=== PATIENT | male | born 1970 | race Caucasian/White ===

== ENCOUNTER 2022-02-09 18:54 | Inpatient (IN) | payer OTHER ==
[2022-02-09] MEDS ORDERED: NITROGLYCERIN SL TABS 0.4 MG TAB SUBLINGUAL STA (18:58)
[2022-02-09] MEDS ORDERED: NITROGLYCERIN OINT 1 INCH/GM PACKET TOPICAL STA (18:58)
[2022-02-09] MEDS ORDERED: LORazepam 2 MG/ML INJ IV STA (18:59)
--- NOTE | 2022-02-09 19:03 | ED ---
ENT HPI - General Stated complaint: Chest pain Time Seen by Provider: 02/09/22 18:55 Source: patient, RN notes reviewed, old records reviewed - History of Present Illness Initial comments: This a 51-year-old male who presents emergency Department with a past medical history significant for multiple heart attacks. Patient has one stent placed. Patient states he is a diabetic with hypertension high cholesterol. Patient states she's had a history of crack cocaine abuse she's been clean for 2 weeks. Patient states currently at [place] and when he was there today he had severe chest pain shortness of breath and became very diaphoretic. Patient received an aspirin there and eventually the pain went away EMS was ordered a call they brought him to the emergency department. Patient currently states he is chest pain-free. She states she does feel somewhat anxious. Patient denies any headache patient denies lightheadedness or dizziness. Patient denies any fever chills or cough. Patient denies abdominal pain - Related Data Allergies Allergy/AdvReac Type Severity Reaction Status Date / Time No Known Allergies Allergy Verified 02/09/22 19:06 Review of Systems ROS Statement: Those systems with pertinent positive or pertinent negative responses have been documented in the HPI. ROS Other: All systems not noted in ROS Statement are negative. General Exam - General Exam Comments Initial Comments: GENERAL: Patient is well-developed and well-nourished. Patient is nontoxic and well- hydrated and is in mild distress. ENT: Neck is soft and supple. No significant lymphadenopathy is noted. Oropharynx is clear. Moist mucous membranes. Neck has full range of motion without eliciting any pain. EYES: The sclera were anicteric and conjunctiva were pink and moist. Extraocular movements were intact and pupils were equal round and reactive to light. Eyelids were unremarkable. PULMONARY: Unlabored respirations. Good breath sounds bilaterally. No audible rales rhonchi or wheezing was noted. CARDIOVASCULAR: There is a regular rate and rhythm without any murmurs gallops or rubs. ABDOMEN: Soft and nontender with normal bowel sounds. SKIN: Skin is clear with no lesions or rashes and otherwise unremarkable. NEUROLOGIC: Patient is alert and oriented x3. Cranial nerves II through XII are grossly intact. Motor and sensory are also intact. Normal speech, volume and content. Symmetrical smile. MUSCULOSKELETAL: Normal extremities with adequate strength and full range of motion. LYMPHATICS: No significant lymphadenopathy is noted PSYCHIATRIC: Mildly anxious Course Vital Signs 02/09/22 02/09/22 02/09/22 18:58 19:17 19:26 Temperature 98.9 F Pulse Rate 97 93 Pulse Rate [ 85 [employer] ] Respiratory 18 18 Rate Blood Pressure 212/125 178/123 O2 Sat by Pulse 98 98 Oximetry Medical Decision Making - Medical Decision Making EKG shows sinus rhythm at 80 bpm NJ interval 263 QRS is under 18 QT interval 412 QTC is 448 per patient's EKG shows no ST segment elevation or depression. EKG shows T-wave inversions in 1 and aVL Chest x-ray showed no acute abnormality. I started the patient heparin secondary to the non-STEMI. I spoke with a [place] hospitalist they agreed to admit the patient admitted the patient I consult cardiology. - Lab Data Result diagrams: 02/09/22 19:22 02/09/22 19:25 Lab Results 02/09/22 02/09/22 02/09/22 Range/Units 19:22 19:22 19:25 WBC 5.7 (3.8-10.6) k/uL RBC 4.64 (4.30-5.90) m/uL Hgb 13.8 (13.0-17.5) gm/dL Hct 41.1 (39.0-53.0) % MCV 88.7 (80.0-100.0) fL MCH 29.8 (25.0-35.0) pg MCHC 33.5 (31.0-37.0) g/dL RDW 13.7 (11.5-15.5) % Plt Count 226 (150-450) k/uL MPV 8.0 Neutrophils % 46 % Lymphocytes % 32 % Monocytes % 11 % Eosinophils % 5 % Basophils % 3 % Neutrophils # 2.7 (1.3-7.7) k/uL Lymphocytes # 1.8 (1.0-4.8) k/uL Monocytes # 0.7 (0-1.0) k/uL Eosinophils # 0.3 (0-0.7) k/uL Basophils # 0.2 (0-0.2) k/uL PT 11.3 (9.0-12.0) sec INR 1.0 (<1.2) APTT 22.3 (22.0-30.0) sec Sodium 138 (137-145) mmol/L Potassium 3.9 (3.5-5.1) mmol/L Chloride 104 (98-107) mmol/L Carbon Dioxide 25 (22-30) mmol/L Anion Gap 9 mmol/L BUN 20 (9-20) mg/dL Creatinine 1.20 (0.66-1.25) mg/dL Est GFR (CKD-EPI)AfAm 81 (>60 ml/min/1.73 sqM) Est GFR (CKD-EPI)NonAf 70 (>60 ml/min/1.73 sqM) Glucose 93 (74-99) mg/dL Calcium 9.0 (8.4-10.2) mg/dL Magnesium 2.0 (1.6-2.3) mg/dL Total Bilirubin 0.4 (0.2-1.3) mg/dL AST 47 (17-59) U/L ALT 26 (4-49) U/L Alkaline Phosphatase 86 (38-126) U/L Troponin I (0.000-0.034) ng/mL Total Protein 6.9 (6.3-8.2) g/dL Albumin 4.0 (3.5-5.0) g/dL 02/09/22 Range/Units 19:25 WBC (3.8-10.6) k/uL RBC (4.30-5.90) m/uL Hgb (13.0-17.5) gm/dL Hct (39.0-53.0) % MCV (80.0-100.0) fL MCH (25.0-35.0) pg MCHC (31.0-37.0) g/dL RDW (11.5-15.5) % Plt Count (150-450) k/uL MPV Neutrophils % % Lymphocytes % % Monocytes % % Eosinophils % % Basophils % % Neutrophils # (1.3-7.7) k/uL Lymphocytes # (1.0-4.8) k/uL Monocytes # (0-1.0) k/uL Eosinophils # (0-0.7) k/uL Basophils # (0-0.2) k/uL PT (9.0-12.0) sec INR (<1.2) APTT (22.0-30.0) sec Sodium (137-145) mmol/L Potassium (3.5-5.1) mmol/L Chloride (98-107) mmol/L Carbon Dioxide (22-30) mmol/L Anion Gap mmol/L BUN (9-20) mg/dL Creatinine (0.66-1.25) mg/dL Est GFR (CKD-EPI)AfAm (>60 ml/min/1.73 sqM) Est GFR (CKD-EPI)NonAf (>60 ml/min/1.73 sqM) Glucose (74-99) mg/dL Calcium (8.4-10.2) mg/dL Magnesium (1.6-2.3) mg/dL Total Bilirubin (0.2-1.3) mg/dL AST (17-59) U/L ALT (4-49) U/L Alkaline Phosphatase (38-126) U/L Troponin I 0.147 H* (0.000-0.034) ng/mL Total Protein (6.3-8.2) g/dL Albumin (3.5-5.0) g/dL Critical Care Time Critical Care Time: Yes Total Critical Care Time: 35 Disposition Clinical Impression: Acute non-ST elevation myocardial infarction (NSTEMI), Cocaine abuse Disposition: ADMITTED IP TO THIS HOSP Referrals: Nonstaff,Physician [Primary Care Provider] - 1-2 days Time of Disposition: 20:34
[2022-02-09 19:35] LABS: Basophils # (A) 0.2 k/uL (0-0.2); Basophils % (A) 3 %; Eosinophils # (A) 0.3 k/uL (0-0.7); Eosinophils % (A) 5 %; HCT 41.1 % (39.0-53.0); HGB 13.8 gm/dL (13.0-17.5); Lymphocytes # (A) 1.8 k/uL (1.0-4.8); Lymphocytes % (A) 32 %; MCH 29.8 pg (25.0-35.0); MCHC 33.5 g/dL (31.0-37.0); MCV 88.7 fL (80.0-100.0); Monocytes # (A) 0.7 k/uL (0-1.0); Monocytes % (A) 11 %; Neutrophils # (A) 2.7 k/uL (1.3-7.7); Neutrophils % (A) 46 %; Platelet Count 226 k/uL (150-450); RBC 4.64 m/uL (4.30-5.90); RDW 13.7 % (11.5-15.5); WBC 5.7 k/uL (3.8-10.6)
[2022-02-09 19:38] LABS: Partial Thromboplastin Time 22.3 sec (22.0-30.0); Prothrombin Time 11.3 sec (9.0-12.0)
[2022-02-09 19:39] LABS: Potassium 3.9 mmol/L (3.5-5.1); Total Bilirubin 0.4 mg/dL (0.2-1.3); Total Protein 6.9 g/dL (6.3-8.2)
[2022-02-09] MEDS ORDERED: HEPARIN SODIUM 1,000 UN/ML (10ML VL) IV ONE (20:19)
[2022-02-09] MEDS ORDERED: LORazepam 1 MG TAB PO STA (20:25)
[2022-02-09] MEDS ORDERED: LABETALOL 5 MG/ML VIAL MDV IVP STA (20:25)
[2022-02-09] MEDS ORDERED: HEPARIN SOD,PORK IN 0.45% NACL 25,000 UNIT in 0.45% NACL 1 250ML.BAG IV SCH (20:30)
[2022-02-09] MEDS ORDERED: NITROGLYCERIN SL TABS 0.4 MG TAB SUBLINGUAL PRN (20:36)
--- NOTE | 2022-02-09 20:51 | XR ---
EXAMINATION TYPE: XR chest 2V DATE OF EXAM: 02/09/2022 7:40 PM COMPARISON: None TECHNIQUE: XR chest 2V Frontal and lateral views of the chest. CLINICAL INDICATION:Male, 51 years old with history of Chest Pain; FINDINGS: Lungs/Pleura: There is no evidence of pleural effusion, focal consolidation, or pneumothorax. Pulmonary vascularity: Unremarkable. Heart/mediastinum: Cardiomediastinal silhouette is unremarkable. Musculoskeletal: No acute osseous pathology. IMPRESSION: No acute cardiopulmonary disease/process.
[2022-02-10] MEDS ORDERED: KETOROLAC 15 MG/ML 1 ML VIAL IVP STA (00:06)
[2022-02-10] MEDS: NITROGLYCERIN OINT 1 INCH/GM PACKET TOPICAL SCH ×3 (00:11→15:20)
[2022-02-10 03:06] VITALS: RESP 20
[2022-02-10] MEDS ORDERED: ASPIRIN 325 MG TAB PO SCH (09:00)
[2022-02-10 11:01] LABS: Chol/HDL Ratio 3.53 Ratio; LDL Cholesterol,Calculated 56.6 mg/dL (0.0-131.0)
[2022-02-10] MEDS ORDERED: ACETAMINOPHEN TAB 325 MG TAB PO PRN (11:21)
[2022-02-10] MEDS ORDERED: ASPIRIN 81 MG PO PRN (11:21)
[2022-02-10] MEDS ORDERED: diphenhydrAMINE 25 MG CAP PO PRN (11:21)
--- NOTE | 2022-02-10 11:27 | P.HPIM ---
History of Present Illness 51-year-old male the with known history of coronary artery disease medical stents in the past history of crack again he use which he last used about 2 and half weeks ago was sent in from [facility] as the zion ent became diaphoretic. It was 120 patient had chest pain and short of breath although patient denied any such symptoms to me. Patient had mild elevated troponins of around 1.2-1.4 stable at that level. Patient denied any nausea vomiting abdominal pain dysuria. Patient had a recent cardiac catheterization about 5 months ago at [facility] and as per the patient was cleared we're obtaining medical records from [facility]. EKG showed some T-wave inversions in lead 1 and aVL, unknown whether these are old or new. EKG, the hospital is being obtained as well. Patient denied any other symptoms. REVIEW OF SYSTEMS: CONSTITUTIONAL: No fever, no malaise, no fatigue. HEENT: No recent visual problems or hearing problems. Denied any sore throat. CARDIOVASCULAR: No chest pain, orthopnea, PND, no palpitations, no syncope. PULMONARY: No shortness of breath, no cough, no hemoptysis. GASTROINTESTINAL: No diarrhea, no nausea, no vomiting, no abdominal pain. NEUROLOGICAL: No headaches, no weakness, no numbness. HEMATOLOGICAL: Denies any bleeding or petechiae. GENITOURINARY: Denies any burning micturition, frequency, or urgency. MUSCULOSKELETAL/RHEUMATOLOGICAL: Denies any joint pain, swelling, or any muscle pain. ENDOCRINE: Denies any polyuria or polydipsia. The rest of the 14-point review of systems is negative. PHYSICAL EXAMINATION: GENERAL: The patient is alert and oriented x3, not in any acute distress. Obese HEENT: Pupils are round and equally reacting to light. EOMI. No scleral icterus. No conjunctival pallor. Normocephalic, atraumatic. No pharyngeal erythema. No thyromegaly. CARDIOVASCULAR: S1 and S2 present. No murmurs, rubs, or gallops. PULMONARY: Chest is clear to auscultation, no wheezing or crackles. ABDOMEN: Soft, nontender, nondistended, normoactive bowel sounds. No palpable organomegaly. MUSCULOSKELETAL: No joint swelling or deformity. EXTREMITIES: No cyanosis, clubbing, or pedal edema. NEUROLOGICAL: Gross neurological examination did not reveal any focal deficits. SKIN: No rashes. Assessment and plan -Mildly elevated troponins: Etiology not clear cut etiology will evaluate the patient patient does have history of coronary disease because of which patient was admitted and cardiology was consulted. Patient doesn't have any chest pain just had diarrhea phoresis. Although he does have a some EKG changes, unknown whether there are new changes are old. Medical records from [facility] are being obtained. -Type 2 diabetes mellitus: Patient will resume on his home regimen follow-up with PCP as an outpatient -Hypertension -Coronary artery disease Patient will be evaluated by cardiology, if cleared by cardiology will be discharged today. Past Medical History Past Medical History: Diabetes Mellitus, Hypertension, Myocardial Infarction ([place]) Additional Past Medical History / Comment(s): history of 9 heart attacks- 1 stent placed, neuropathy, gout, History of Any Multi-Drug Resistant Organisms: None Reported Past Surgical History: Cholecystectomy Additional Past Surgical History / Comment(s): back surgery, Past Psychological History: Unable to Obtain Smoking Status: Never smoker Past Alcohol Use History: None Reported Past Drug Use History: Cocaine Medications and Allergies Home Medications Medication Instructions Recorded Confirmed Type Acetaminophen [Tylenol Arthritis] 650 mg PO Q4H PRN 02/09/22 02/09/22 History Aspirin EC [Ecotrin Low Dose] 324 mg PO ONCE PRN 02/09/22 02/09/22 History Chlorpheniramine Maleate 4 mg PO Q4H PRN 02/09/22 02/09/22 History [Chlor-Trimeton] Ibuprofen [Motrin Ib] 800 mg PO TID 02/09/22 02/09/22 History Mag Hydrox/Aluminum Hyd/Simeth 30 ml PO Q4H PRN 02/09/22 02/09/22 History [Mylanta Maximum Strength Liq] Metoprolol Succinate [Toprol XL] 100 mg PO DAILY 02/09/22 02/09/22 History Mirtazapine [Remeron] 15 - 30 mg PO HS 02/09/22 02/09/22 History Multivitamins, Thera [Multivitamin 1 tab PO DAILY 02/09/22 02/09/22 History (formulary)] Thiamine [Vitamin B-1] 100 mg PO DAILY 02/09/22 02/09/22 History gemfibroziL [Lopid] 600 mg PO AC-BID 02/09/22 02/09/22 History glyBURIDE [Diabeta] 5 mg PO AC-BID 02/09/22 02/09/22 History lisinopriL 40 mg PO DAILY 02/09/22 02/09/22 History Allergies Allergy/AdvReac Type Severity Reaction Status Date / Time No Known Allergies Allergy Verified 02/09/22 20:46 Physical Exam Vitals: Vital Signs Temp Pulse Pulse Resp BP Pulse Ox 02/10/22 06:33 90 20 173/111 98 02/10/22 03:05 88 20 98 02/10/22 00:11 87 16 189/114 97 02/09/22 21:58 80 16 161/104 96 02/09/22 21:02 77 18 190/132 96 02/09/22 20:54 88 18 210/125 99 02/09/22 19:26 93 18 178/123 98 02/09/22 19:17 85 02/09/22 18:58 98.9 F 97 18 212/125 98 Intake and Output 02/09/22 02/10/22 02/10/22 22:59 06:59 14:59 Other: Weight 138.346 kg Results CBC & Chem 7: 02/09/22 19:22 02/09/22 19:25 Labs: Abnormal Lab Results - Last 24 Hours (Table) 02/09/22 02/09/22 02/09/22 Range/Units 19:25 21:35 23:53 Troponin I 0.147 H* 0.132 H* 0.126 H* (0.000-0.034) ng/mL HDL Cholesterol (40.00-60.00) mg/dL 02/10/22 Range/Units 08:04 Troponin I (0.000-0.034) ng/mL HDL Cholesterol 32.00 L (40.00-60.00) mg/dL
--- NOTE | 2022-02-10 11:28 | P.DS ---
Providers Date of admission: 02/09/22 20:36 Attending physician: Papo Maldonado Consults: 02/09/22 20:36 Consult Physician Urgent Consulting Provider: [facility] Consult Reason/Comments: Non-STEMI Do you want consulting provider notified?: Yes Primary care physician: Physician Nonsta Hospital Course: Refer to my history of present illness for further details Plan - Discharge Summary New Discharge Prescriptions: Continue Mirtazapine [Remeron] 15 - 30 mg PO HS Mag Hydrox/Aluminum Hyd/Simeth [Mylanta Maximum Strength Liq] 30 ml PO Q4H PRN PRN Reason: Gi Upset Chlorpheniramine Maleate [Chlor-Trimeton] 4 mg PO Q4H PRN PRN Reason: Allergy Symptoms glyBURIDE [Diabeta] 5 mg PO AC-BID gemfibroziL [Lopid] 600 mg PO AC-BID Thiamine [Vitamin B-1] 100 mg PO DAILY Aspirin EC [Ecotrin Low Dose] 324 mg PO ONCE PRN PRN Reason: Pain Acetaminophen [Tylenol Arthritis] 650 mg PO Q4H PRN PRN Reason: pain Multivitamins, Thera [Multivitamin (formulary)] 1 tab PO DAILY lisinopriL 40 mg PO DAILY Metoprolol Succinate [Toprol XL] 100 mg PO DAILY Ibuprofen [Motrin Ib] 800 mg PO TID Discharge Medication List Acetaminophen [Tylenol Arthritis] 650 mg PO Q4H PRN 02/09/22 [History] Aspirin EC [Ecotrin Low Dose] 324 mg PO ONCE PRN 02/09/22 [History] Chlorpheniramine Maleate [Chlor-Trimeton] 4 mg PO Q4H PRN 02/09/22 [History] Ibuprofen [Motrin Ib] 800 mg PO TID 02/09/22 [History] Mag Hydrox/Aluminum Hyd/Simeth [Mylanta Maximum Strength Liq] 30 ml PO Q4H PRN 02/09/22 [History] Metoprolol Succinate [Toprol XL] 100 mg PO DAILY 02/09/22 [History] Mirtazapine [Remeron] 15 - 30 mg PO HS 02/09/22 [History] Multivitamins, Thera [Multivitamin (formulary)] 1 tab PO DAILY 02/09/22 [Histo ry] Thiamine [Vitamin B-1] 100 mg PO DAILY 02/09/22 [History] gemfibroziL [Lopid] 600 mg PO AC-BID 02/09/22 [History] glyBURIDE [Diabeta] 5 mg PO AC-BID 02/09/22 [History] lisinopriL 40 mg PO DAILY 02/09/22 [History] Follow up Appointment(s)/Referral(s): Nonstaff,Physician [Primary Care Provider] - 1-2 days
[2022-02-10] MEDS ORDERED: METOPROLOL SUCCINATE (ER) 100 MG TAB.ER.24H PO SCH (11:45)
[2022-02-10] MEDS ORDERED: lisinopriL 20 MG TAB PO SCH (11:45)
--- NOTE | 2022-02-10 13:37 | CONS ---
CONSULTATION Seamus Vang is a 51-year-old gentleman who has most of his health care in the [facility] in [facility]. He has type 2 diabetes, hypertension, and also crack cocaine addiction for which he was at [place]. He was helping in the kitchen and then developed some shortness of breath and also felt he broke into a sweat. He was not happy about working in the kitchen either. However, he feels well. He has no chest pain or shortness of breath. He is resting comfortably. His 3 levels of troponin are equivocal borderline at 0.12, 0.14 and 0.12. He is resting comfortably at the time of my evaluation. About 4-5 months ago, he had a cardiac cath which revealed nonobstructive CAD. He does have history of previous PCI the details of which are not available. I am unable to get any records from the [facility]. Patient is chest pain free, resting comfortably without symptoms. EKG revealed a sinus mechanism with one and aVL showing some T-wave inversion which are nonspecific findings. He is currently on aspirin 81 mg daily, diabetic medications and also lisinopril 40 mg daily and metoprolol 100 mg daily. He is asymptomatic at the time of my evaluation. PHYSICAL EXAMINATION: On examination, blood pressure is 170/70, pulse rate is 84 per minute., HEENT unremarkable. Fundus was not examined by me. Neck is supple. No JVD. I do not hear a carotid bruit. Heart exam reveals S1, S2 heard normally. No rub, murmur or gallop. Lungs are clear. Abdomen is soft, nontender. Lower extremities reveal diminished pulses. Central nervous system is normal. Troponin levels are equivocal. IMPRESSION: 1. Chest pain, atypical. 2. History of coronary artery disease with unremarkable cardiac cath 4-5 months ago. 3. Type 2 diabetes mellitus. 4. Hypertension. 5. Hyperlipidemia. RECOMMENDATIONS: I will optimize BP control by adding amlodipine 5 mg b.i.d., continue his other medications as before. We can discharge him and have him follow up with his adjuster as an outpatient. The patient is asymptomatic, ambulating without symptoms. I will also optimize BP control and get his records if I can from [facility] in [place]. Actually, after I said this, I reviewed the record. His coronaries were clear. No obstructive disease. Ejection fraction 55%, and his EKG also with T-wave inversion in 1 aVL is not new, was seen in September of 2021. Patient can be discharged and we will give Norvasc for BP control. Resume his medications. Thank you very much for the consult. I discussed my thoughts in detail with the patient. MMODL / IJN: [id number] /
[2022-02-10 15:24] VITALS: PULSE 85
[2022-02-10 15:30] VITALS: BP 149/92; TEMP 98.3
[2022-02-10] MEDS ORDERED: FENOFIBRATE 160 MG TAB PO SCH (17:30)
[2022-02-10] MEDS ORDERED: glipiZIDE 10 MG TAB PO SCH (17:30)
[2022-02-10] MEDS ORDERED: MIRTAZAPINE 15 MG TAB PO SCH (21:00)
[2022-02-11] MEDS ORDERED: MULTIVITAMINS, THERA 1 EACH TAB PO SCH (09:00)
[2022-02-11] MEDS ORDERED: THIAMINE 100 MG TAB PO SCH (09:00)
== END 2022-02-10 15:20 | DRG 313 ==
LOC: EC 18:54 → 3SCARD 20:36
PROVIDERS: ADMIT Hospitalist; ATTEND Hospitalist
DX: R07.89 Other chest pain (principal); F14.20 Cocaine dependence, uncomplicated; I25.10 Atherosclerotic heart disease of native coronary artery without angina pectoris; E11.40 Type 2 diabetes mellitus with diabetic neuropathy, unspecified; I10 Essential (primary) hypertension; E78.00 Pure hypercholesterolemia, unspecified; I25.2 Old myocardial infarction; Z79.82 Long term (current) use of aspirin; Z79.84 Long term (current) use of oral hypoglycemic drugs; Z79.1 Long term (current) use of non-steroidal anti-inflammatories (NSAID); Z79.899 Other long term (current) drug therapy; Z95.5 Presence of coronary angioplasty implant and graft; Z87.39 Personal history of other diseases of the musculoskeletal system and connective tissue
CPT/HCPCS: 36415; 71046; 80053; 80061; 83735; 84484; 85025; 85610; 85730; 93005; 96365; 96366; 96375; 99291

== ENCOUNTER 2022-02-15 20:56 | Observation (INO) | payer OTHER ==
[2022-02-15] MEDS ORDERED: ASPIRIN 81 MG PO STA (21:12)
[2022-02-15] MEDS ORDERED: diphenhydrAMINE 50 MG/ML 1 ML VIAL IVP STA (21:12)
[2022-02-15] MEDS ORDERED: SODIUM CHLORIDE 0.9% 1,000 ML IV STA (21:12)
[2022-02-15] MEDS ORDERED: KETOROLAC 15 MG/ML 1 ML VIAL IVP STA (21:13)
[2022-02-15] MEDS ORDERED: ACETAMINOPHEN TAB 500 MG TAB PO STA (21:13)
[2022-02-15] MEDS ORDERED: PROCHLORPERAZINE INJ 10 MG/2 ML VIAL IVP STA (21:13)
[2022-02-15 21:38] LABS: Basophils # (A) 0.1 k/uL (0-0.2); Basophils % (A) 1 %; Eosinophils # (A) 0.2 k/uL (0-0.7); Eosinophils % (A) 2 %; HCT 40.9 % (39.0-53.0); HGB 13.6 gm/dL (13.0-17.5); Lymphocytes # (A) 1.1 k/uL (1.0-4.8); Lymphocytes % (A) 9 %; MCH 30.6 pg (25.0-35.0); MCHC 33.2 g/dL (31.0-37.0); MCV 92.1 fL (80.0-100.0); Mean Platelet Volume 7.8; Monocytes # (A) 0.7 k/uL (0-1.0); Monocytes % (A) 6 %; Neutrophils % (A) 82 %; Platelet Count 272 k/uL (150-450); RBC 4.44 m/uL (4.30-5.90); WBC 12.3 k/uL (3.8-10.6)
[2022-02-15 21:59] LABS: ALT 22 U/L (4-49); AST 35 U/L (17-59); African American GFR (CKD) >90 (>60 ml/min/1.73 sqM); Albumin 3.6 g/dL (3.5-5.0); Alkaline Phosphatase 73 U/L (38-126); Anion Gap 7 mmol/L; Blood Urea Nitrogen 17 mg/dL (9-20); Calcium 8.6 mg/dL (8.4-10.2); Carbon Dioxide 25 mmol/L (22-30); Chloride 107 mmol/L (98-107); Glucose 79 mg/dL (74-99); Magnesium 1.6 mg/dL (1.6-2.3); Non-African American GFR(CKD) 82 (>60 ml/min/1.73 sqM); Potassium 3.9 mmol/L (3.5-5.1); Sodium 139 mmol/L (137-145); Total Bilirubin 0.3 mg/dL (0.2-1.3); Total Protein 6.3 g/dL (6.3-8.2)
--- NOTE | 2022-02-15 22:04 | XR ---
EXAMINATION TYPE: XR chest 2V DATE OF EXAM: 02/15/2022 COMPARISON: 02/09/2022 HISTORY: Chest pain TECHNIQUE: 2 views FINDINGS: Heart and mediastinum are normal. Lungs are clear. Diaphragm is normal. Bony thorax is inta ct. IMPRESSION: Normal chest. No change.
--- NOTE | 2022-02-15 22:05 | ED ---
General Adult HPI - General Chief complaint: Chest Pain Stated complaint: Chest Pain Time Seen by Provider: 02/15/22 21:05 Source: EMS, RN notes reviewed, old records reviewed Mode of arrival: EMS Limitations: no limitations - History of Present Illness Initial comments: Patient is a 51-year-old male with past with history remarkable for multiple MIs, cardiac stents who presents emergency Department from rehab complaining of upper respiratory symptoms as well as an episode of chest pain earlier today. Prior cocaine use. Denies any recent use. Patient states that for the last 1-2 days he has been having upper respiratory symptoms with cough, nasal drainage. Was not vaccinated for COVID-19 or influenza. Denies chest congestion. Denies nausea, vomiting, abdominal pain, diarrhea. No known sick contacts. States he did have an episode of chest pain approximate 4 hours prior to arrival that resolved with nitro. Describes it as substernal and left-sided is achy and sharp. Currently asymptomatic. No other acute complaints at this time.Patient does endorse a headache following the nitro tablet. - Related Data Home Medications Medication Instructions Recorded Confirmed Acetaminophen [Tylenol Arthritis] 650 mg PO Q4H PRN 02/09/22 02/15/22 Chlorpheniramine Maleate 4 mg PO Q4H PRN 02/09/22 02/15/22 [Chlor-Trimeton] Ibuprofen [Motrin Ib] 600 mg PO Q6H PRN 02/09/22 02/15/22 Mag Hydrox/Aluminum Hyd/Simeth 30 ml PO Q4H PRN 02/09/22 02/15/22 [Mylanta Maximum Strength Liq] Metoprolol Succinate [Toprol XL] 100 mg PO DAILY 02/09/22 02/15/22 Mirtazapine [Remeron] 15 - 30 mg PO HS 02/09/22 02/15/22 Multivitamins, Thera [Multivitamin 1 tab PO DAILY 02/09/22 02/15/22 (formulary)] Thiamine [Vitamin B-1] 100 mg PO DAILY 02/09/22 02/15/22 gemfibroziL [Lopid] 600 mg PO BID 02/09/22 02/15/22 glyBURIDE [Diabeta] 5 mg PO BID 02/09/22 02/15/22 lisinopriL 40 mg PO DAILY 02/09/22 02/15/22 Ibuprofen [Motrin] 800 mg PO TID 02/15/22 02/15/22 cloNIDine HCL [Catapres] 0.1 - 0.3 mg PO Q4H PRN 02/15/22 02/15/22 Allergies Allergy/AdvReac Type Severity Reaction Status Date / Time No Known Allergies Allergy Verified 02/15/22 21:50 Review of Systems ROS Statement: Those systems with pertinent positive or pertinent negative responses have been documented in the HPI. Review of Systems: CONST: Denies fever EYES: Denies blurry vision ENT: Endorses nasal congestion C/V: Denies Chest pain RESP: Denies shortness of breath GI: Denies abdominal pain : Denies dysuria SKIN: Denies rash. MSK: Denies joint pain. NEURO: Endorses mild headache ROS Other: All systems not noted in ROS Statement are negative. Past Medical History Past Medical History: Diabetes Mellitus, Hypertension, Myocardial Infarction ([place]) Additional Past Medical History / Comment(s): history of 9 heart attacks- 1 stent placed, neuropathy, gout, Last Myocardial Infarction Date:: unknown History of Any Multi-Drug Resistant Organisms: None Reported Past Surgical History: Cholecystectomy Additional Past Surgical History / Comment(s): back surgery, Past Psychological History: Unable to Obtain Smoking Status: Never smoker Past Alcohol Use History: None Reported Past Drug Use History: Cocaine General Exam - General Exam Comments Initial Comments: General: Appears in no acute distress. Patient is obese. Patient is mildly febrile. HEAD: Normal with no signs of head trauma. EYES: PERRLA, EOMI, conjunctiva normal, no discharge. ENT: Hearing grossly intact, normal oropharynx. Active rhinorrhea. RESPIRATORY: Clear breath sounds bilaterally. No wheezes, rales, or rhonchi. No respiratory distress. No hypoxia. C/V: Regular rate and rhythm. S1 and S2 auscultated, no edema, peripheral pulses 2+ and intact throughout ABD: Abd is soft, nontender, nondistended EXT: Normal range of motion, no obvious deformity SKIN: No rashes or lesions observed on exposed skin. NEURO: Alert and oriented 4. No focal deficits. Limitations: no limitations Course Vital Signs 02/15/22 20:59 Temperature 100.5 F H Pulse Rate 105 H Respiratory 20 Rate Blood Pressure 163/109 O2 Sat by Pulse 98 Oximetry Medical Decision Making - Medical Decision Making Abdomen the patient's presentation and physical exam, I'm concerned for acute cardiopulmonary etiology for his current symptoms. Due to his extensive cardiac history and his episode of chest pain that was relieved with nitro earlier, we'll obtain cardiac workup. We will also obtain viral swabs, chest x-ray. He was in agreement with this plan. He'll be given an aspirin. He'll also be given medications for his headache. EKG shows no signs of acute ischemia. Similar EKG the last weeks. Chest x-ray shows no acute cardiopulmonary process. Laboratory studies are remarkable for a mild leukocytosis of 12. Troponin is elevated to 0.075. Due to the patient's chest pain shortly before arrival that has since resolved, as well as his elevated troponin and history of cardiac disease, he will be started on heparin. Concern for possible NSTEMI. He'll be admitted to the hospital. He was in agreement this plan. Vital signs remained within normal limits. We'll monitor his fever. I explained he is likely experiencing a viral illness. I spoke with the admitting team, LUCIE Souza of [facility] who accepted the patient. Patient was admitted in stable condition to telemetry bed. - Lab Data Result diagrams: 02/15/22 21:29 02/15/22 21:29 Lab Results 02/15/22 02/15/22 02/15/22 Range/Units 21:29 21:29 21:29 WBC 12.3 H (3.8-10.6) k/uL RBC 4.44 (4.30-5.90) m/uL Hgb 13.6 (13.0-17.5) gm/dL Hct 40.9 (39.0-53.0) % MCV 92.1 (80.0-100.0) fL MCH 30.6 (25.0-35.0) pg MCHC 33.2 (31.0-37.0) g/dL RDW 14.0 (11.5-15.5) % Plt Count 272 (150-450) k/uL MPV 7.8 Neutrophils % 82 % Lymphocytes % 9 % Monocytes % 6 % Eosinophils % 2 % Basophils % 1 % Neutrophils # 10.0 H (1.3-7.7) k/uL Lymphocytes # 1.1 (1.0-4.8) k/uL Monocytes # 0.7 (0-1.0) k/uL Eosinophils # 0.2 (0-0.7) k/uL Basophils # 0.1 (0-0.2) k/uL Sodium 139 (137-145) mmol/L Potassium 3.9 (3.5-5.1) mmol/L Chloride 107 (98-107) mmol/L Carbon Dioxide 25 (22-30) mmol/L Anion Gap 7 mmol/L BUN 17 (9-20) mg/dL Creatinine 1.06 (0.66-1.25) mg/dL Est GFR (CKD-EPI)AfAm >90 (>60 ml/min/1.73 sqM) Est GFR (CKD-EPI)NonAf 82 (>60 ml/min/1.73 sqM) Glucose 79 (74-99) mg/dL Calcium 8.6 (8.4-10.2) mg/dL Magnesium 1.6 (1.6-2.3) mg/dL Total Bilirubin 0.3 (0.2-1.3) mg/dL AST 35 (17-59) U/L ALT 22 (4-49) U/L Alkaline Phosphatase 73 (38-126) U/L Troponin I 0.075 H* (0.000-0.034) ng/mL Total Protein 6.3 (6.3-8.2) g/dL Albumin 3.6 (3.5-5.0) g/dL Coronavirus (PCR) (Not Detectd) Influenza Type A RNA (Not Detectd) Influenza Type B (PCR) (Not Detectd) 02/15/22 02/15/22 Range/Units 21:29 21:29 WBC (3.8-10.6) k/uL RBC (4.30-5.90) m/uL Hgb (13.0-17.5) gm/dL Hct (39.0-53.0) % MCV (80.0-100.0) fL MCH (25.0-35.0) pg MCHC (31.0-37.0) g/dL RDW (11.5-15.5) % Plt Count (150-450) k/uL MPV Neutrophils % % Lymphocytes % % Monocytes % % Eosinophils % % Basophils % % Neutrophils # (1.3-7.7) k/uL Lymphocytes # (1.0-4.8) k/uL Monocytes # (0-1.0) k/uL Eosinophils # (0-0.7) k/uL Basophils # (0-0.2) k/uL Sodium (137-145) mmol/L Potassium (3.5-5.1) mmol/L Chloride (98-107) mmol/L Carbon Dioxide (22-30) mmol/L Anion Gap mmol/L BUN (9-20) mg/dL Creatinine (0.66-1.25) mg/dL Est GFR (CKD-EPI)AfAm (>60 ml/min/1.73 sqM) Est GFR (CKD-EPI)NonAf (>60 ml/min/1.73 sqM) Glucose (74-99) mg/dL Calcium (8.4-10.2) mg/dL Magnesium (1.6-2.3) mg/dL Total Bilirubin (0.2-1.3) mg/dL AST (17-59) U/L ALT (4-49) U/L Alkaline Phosphatase (38-126) U/L Troponin I (0.000-0.034) ng/mL Total Protein (6.3-8.2) g/dL Albumin (3.5-5.0) g/dL Coronavirus (PCR) Not Detected (Not Detectd) Influenza Type A RNA Not Detected (Not Detectd) Influenza Type B (PCR) Not Detected (Not Detectd) - EKG Data -: EKG Interpreted by Me EKG Comments: 12-lead Electrocardiogram Interpretation Note EKG was reviewed and interpreted by myself. 12-lead ECG performed at 2111 is interpreted by me as revealing normal sinus rhythm at a rate of 98 beats per minute. [place] is normal. [place] interval is 144 ms, QRS durations 113 ms, QTc is 422 ms.. There were no acute ST or T wave abnormalities to suggest myocardial ischemia or injury. R wave progression across the precordium was satisfactory. By my interpretation this EKG is non-diagnostic for acute ischemia. There are chronic changes seen on prior EKGs from 02/09/2022. T wave inversions in lateral precordial leads that are seen on the old EKG are not represented here. Critical Care Time Critical Care Time: Yes Total Critical Care Time: 35 Critical Care Time: Upon my evaluation, this patient had a high probability of imminent or life- threatening deterioration due to heparin initiation, NSTEMI, which required my direct attention, intervention, and personal management. I have personally provided 35 minutes of critical care time exclusive of time spent on separately billable procedures. Time includes review of laboratory data, radiology results, discussion with consultants, and monitoring for potential decompensation. Interventions were performed as documented in my note. Disposition Clinical Impression: NSTEMI (non-ST elevated myocardial infarction), Viral URI Disposition: ADMITTED IP TO THIS HOSP Condition: Stable Referrals: None,Stated [Primary Care Provider] - 1-2 days Time of Disposition: 22:25
[2022-02-15] MEDS ORDERED: HEPARIN SODIUM 1,000 UN/ML (10ML VL) IV PRN (22:27)
[2022-02-15] MEDS ORDERED: HEPARIN SODIUM 1,000 UN/ML (10ML VL) IV ONE (22:27)
[2022-02-15] MEDS ORDERED: LORATADINE-PSEUDOEPH 5-120 MG 1 EACH TAB.ER.12H PO PRN (22:27)
[2022-02-15] MEDS ORDERED: NALOXONE 0.4 MG/ML 1 ML VIAL IV PRN (22:29)
[2022-02-15] MEDS ORDERED: HEPARIN SOD,PORK IN 0.45% NACL 25,000 UNIT in 0.45% NACL 1 250ML.BAG IV SCH (22:30)
[2022-02-15] MEDS ORDERED: diphenhydrAMINE 25 MG CAP PO PRN (22:31)
[2022-02-16 02:47] LABS: Basophils # (A) 0.1 k/uL (0-0.2); Basophils % (A) 1 %; Eosinophils # (A) 0.3 k/uL (0-0.7); Eosinophils % (A) 2 %; HCT 40.4 % (39.0-53.0); HGB 13.1 gm/dL (13.0-17.5); Lymphocytes # (A) 1.5 k/uL (1.0-4.8); Lymphocytes % (A) 13 %; MCH 29.5 pg (25.0-35.0); MCHC 32.5 g/dL (31.0-37.0); MCV 90.8 fL (80.0-100.0); Mean Platelet Volume 7.8; Monocytes # (A) 0.7 k/uL (0-1.0); Monocytes % (A) 6 %; Neutrophils # (A) 9.4 k/uL (1.3-7.7); Neutrophils % (A) 78 %; Platelet Count 249 k/uL (150-450); RBC 4.45 m/uL (4.30-5.90); RDW 13.7 % (11.5-15.5); WBC 12.1 k/uL (3.8-10.6)
[2022-02-16 03:00] LABS: Calcium 8.8 mg/dL (8.4-10.2); Potassium 3.6 mmol/L (3.5-5.1)
[2022-02-16 03:01] LABS: INR 1.1 (<1.2); Prothrombin Time 11.4 sec (9.0-12.0)
[2022-02-16] MEDS ORDERED: ACETAMINOPHEN TAB 325 MG TAB PO PRN (06:13)
[2022-02-16] MEDS ORDERED: glipiZIDE 10 MG TAB PO SCH (07:30)
[2022-02-16] MEDS ORDERED: lisinopriL 20 MG TAB PO SCH (09:00)
[2022-02-16] MEDS ORDERED: FENOFIBRATE 160 MG TAB PO SCH (09:00)
[2022-02-16] MEDS ORDERED: METOPROLOL SUCCINATE (ER) 100 MG TAB.ER.24H PO SCH (09:00)
--- NOTE | 2022-02-16 10:39 | P.HPIM ---
History of Present Illness 51-year-old male with history of microinfarction the past came in with complaints of upper respiratory tract symptoms that is a nasal discharge yellowish to greenish in color headache sinusitis like symptoms and found to have low-grade fever. Patient chest x-ray did not show pneumonia patient was having some cough without any significant sputum production he no other evidence of infection was evident. Patient has a mildly elevated troponin flat at around 0.9 patient was recently hospitalized for similar symptoms was evaluated by cardiology at that time, patient was cleared for discharge as troponin elevation is not consistent with type I microinfarction. Patient is presently on IV heparin. Patient's COVID-19, he feels a and B is negative. REVIEW OF SYSTEMS: CONSTITUTIONAL: No fever, no malaise, no fatigue. HEENT: No recent visual problems or hearing problems. Denied any sore throat. CARDIOVASCULAR: No chest pain, orthopnea, PND, no palpitations, no syncope. PULMONARY: No shortness of breath, no cough, no hemoptysis. GASTROINTESTINAL: No diarrhea, no nausea, no vomiting, no abdominal pain. NEUROLOGICAL: No headaches, no weakness, no numbness. HEMATOLOGICAL: Denies any bleeding or petechiae. GENITOURINARY: Denies any burning micturition, frequency, or urgency. MUSCULOSKELETAL/RHEUMATOLOGICAL: Denies any joint pain, swelling, or any muscle pain. ENDOCRINE: Denies any polyuria or polydipsia. The rest of the 14-point review of systems is negative. PHYSICAL EXAMINATION: GENERAL: The patient is alert and oriented x3, not in any acute distress. Well developed, well nourished. HEENT: Pupils are round and equally reacting to light. EOMI. No scleral icterus. No conjunctival pallor. Normocephalic, atraumatic. No pharyngeal erythema. No thyromegaly patient does have sinus tenderness.. CARDIOVASCULAR: S1 and S2 present. No murmurs, rubs, or gallops. PULMONARY: Chest is clear to auscultation, no wheezing or crackles. ABDOMEN: Soft, nontender, nondistended, normoactive bowel sounds. No palpable organomegaly. MUSCULOSKELETAL: No joint swelling or deformity. EXTREMITIES: No cyanosis, clubbing, or pedal edema. NEUROLOGICAL: Gross neurological examination did not reveal any focal deficits. SKIN: No rashes. Assessment and plan -Acute bacterial sinusitis leading to sepsis, patient will be given IV heparin Rocephin, patient probably can be discharged on oral Ceftin for 4 more days. -Mildly elevated troponins are not consistent with type I microinfarction cardiology will evaluate the patient if cleared by cardiology patient will be discharged today -Type 2 diabetes mellitus patient will resume his home regimen -Hypertension -Coronary artery disease with previous myocardial infarction the past Past Medical History Past Medical History: Diabetes Mellitus, Hypertension, Myocardial Infarction ([place]) Additional Past Medical History / Comment(s): history of 9 heart attacks- 1 stent placed, neuropathy, gout, Last Myocardial Infarction Date:: unknown History of Any Multi-Drug Resistant Organisms: None Reported Past Surgical History: Cholecystectomy Additional Past Surgical History / Comment(s): back surgery, Past Psychological History: Unable to Obtain Smoking Status: Never smoker Past Alcohol Use History: None Reported Past Drug Use History: Cocaine Medications and Allergies Home Medications Medication Instructions Recorded Confirmed Type Acetaminophen [Tylenol Arthritis] 650 mg PO Q4H PRN 02/09/22 02/15/22 History Chlorpheniramine Maleate 4 mg PO Q4H PRN 02/09/22 02/15/22 History [Chlor-Trimeton] Ibuprofen [Motrin Ib] 600 mg PO Q6H PRN 02/09/22 02/15/22 History Mag Hydrox/Aluminum Hyd/Simeth 30 ml PO Q4H PRN 02/09/22 02/15/22 History [Mylanta Maximum Strength Liq] Metoprolol Succinate [Toprol XL] 100 mg PO DAILY 02/09/22 02/15/22 History Mirtazapine [Remeron] 15 - 30 mg PO HS 02/09/22 02/15/22 History Multivitamins, Thera [Multivitamin 1 tab PO DAILY 02/09/22 02/15/22 History (formulary)] Thiamine [Vitamin B-1] 100 mg PO DAILY 02/09/22 02/15/22 History gemfibroziL [Lopid] 600 mg PO BID 02/09/22 02/15/22 History glyBURIDE [Diabeta] 5 mg PO BID 02/09/22 02/15/22 History Ibuprofen [Motrin] 800 mg PO TID 02/15/22 02/15/22 History cloNIDine HCL [Catapres] 0.1 - 0.3 mg PO Q4H PRN 02/15/22 02/15/22 History cefUROXime axetiL [Ceftin] 500 mg PO BID 4 Days #8 tab 02/16/22 Rx lisinopriL 20 mg PO DAILY #0 02/16/22 02/15/22 Rx Allergies Allergy/AdvReac Type Severity Reaction Status Date / Time No Known Allergies Allergy Verified 02/15/22 21:50 Physical Exam Vitals: Vital Signs Temp Pulse Pulse Resp BP BP Pulse Ox 02/16/22 08:00 97.2 F L 105 H 18 117/112 96 02/16/22 06:25 98.7 F 92 18 158/101 96 02/15/22 23:54 98.2 F 105 H 18 138/83 98 02/15/22 20:59 100.5 F H 105 H 20 163/109 98 Intake and Output 02/15/22 02/16/22 02/16/22 22:59 06:59 14:59 Intake Total 94 Balance 94 Intake: Intake, IV Titration 94 Amount Heparin Sod,Pork in 0.45% 94 NaCl 25,000 unit In 0.45 % NaCl 1 250ml.bag @ 7. 252 UNITS/KG/HR 10 mls/hr IV .Q24H [facility] Rx#: [id number] Other: Weight 137.892 kg Results CBC & Chem 7: 02/16/22 02:26 02/16/22 02:26 Labs: Abnormal Lab Results - Last 24 Hours (Table) 02/15/22 02/15/22 02/15/22 Range/Units 21:29 21:29 23:14 WBC 12.3 H (3.8-10.6) k/uL Neutrophils # 10.0 H (1.3-7.7) k/uL APTT (22.0-30.0) sec Glucose (74-99) mg/dL Troponin I 0.075 H* 0.086 H* (0.000-0.034) ng/mL 02/16/22 02/16/22 02/16/22 Range/Units 02:26 02:26 02:26 WBC 12.1 H (3.8-10.6) k/uL Neutrophils # 9.4 H (1.3-7.7) k/uL APTT (22.0-30.0) sec Glucose 116 H (74-99) mg/dL Troponin I 0.090 H* (0.000-0.034) ng/mL 02/16/22 Range/Units 07:18 WBC (3.8-10.6) k/uL Neutrophils # (1.3-7.7) k/uL APTT 30.2 H (22.0-30.0) sec Glucose (74-99) mg/dL Troponin I (0.000-0.034) ng/mL
--- NOTE | 2022-02-16 10:39 | P.DS ---
Providers Date of admission: 02/15/22 22:29 Attending physician: Papo Maldonado Consults: 02/15/22 22:29 Consult Physician Routine Consulting Provider: [facility] Consult Reason/Comments: NSTEMI Do you want consulting provider notified?: Yes, Notify in am Primary care physician: Stated None Hospital Course: Please refer to my history of present illness for further details Patient Condition at Discharge: Stable Plan - Discharge Summary New Discharge Prescriptions: New cefUROXime axetiL [Ceftin] 500 mg PO BID 4 Days #8 tab Continue Mirtazapine [Remeron] 15 - 30 mg PO HS Mag Hydrox/Aluminum Hyd/Simeth [Mylanta Maximum Strength Liq] 30 ml PO Q4H PRN PRN Reason: Gi Upset Chlorpheniramine Maleate [Chlor-Trimeton] 4 mg PO Q4H PRN PRN Reason: Allergy Symptoms glyBURIDE [Diabeta] 5 mg PO BID gemfibroziL [Lopid] 600 mg PO BID Ibuprofen [Motrin] 800 mg PO TID Thiamine [Vitamin B-1] 100 mg PO DAILY Acetaminophen [Tylenol Arthritis] 650 mg PO Q4H PRN PRN Reason: pain Multivitamins, Thera [Multivitamin (formulary)] 1 tab PO DAILY Metoprolol Succinate [Toprol XL] 100 mg PO DAILY Ibuprofen [Motrin Ib] 600 mg PO Q6H PRN PRN Reason: Pain cloNIDine HCL [Catapres] 0.1 - 0.3 mg PO Q4H PRN PRN Reason: BP >160/100 Changed lisinopriL 20 mg PO DAILY #0 Discharge Medication List Acetaminophen [Tylenol Arthritis] 650 mg PO Q4H PRN 02/09/22 [History] Chlorpheniramine Maleate [Chlor-Trimeton] 4 mg PO Q4H PRN 02/09/22 [History] Ibuprofen [Motrin Ib] 600 mg PO Q6H PRN 02/09/22 [History] Mag Hydrox/Aluminum Hyd/Simeth [Mylanta Maximum Strength Liq] 30 ml PO Q4H PRN 02/09/22 [History] Metoprolol Succinate [Toprol XL] 100 mg PO DAILY 02/09/22 [History] Mirtazapine [Remeron] 15 - 30 mg PO HS 02/09/22 [History] Multivitamins, Thera [Multivitamin (formulary)] 1 tab PO DAILY 02/09/22 [Histo ry] Thiamine [Vitamin B-1] 100 mg PO DAILY 02/09/22 [History] gemfibroziL [Lopid] 600 mg PO BID 02/09/22 [History] glyBURIDE [Diabeta] 5 mg PO BID 02/09/22 [History] Ibuprofen [Motrin] 800 mg PO TID 02/15/22 [History] cloNIDine HCL [Catapres] 0.1 - 0.3 mg PO Q4H PRN 02/15/22 [History] cefUROXime axetiL [Ceftin] 500 mg PO BID 4 Days #8 tab 02/16/22 [Rx] lisinopriL 20 mg PO DAILY #0 02/16/22 [Rx] Follow up Appointment(s)/Referral(s): Kiko Fuchs MD [REFERRING] - 1 Week Hi Hernandez DO [Doctor of Osteopathic Medicine] - 1 Week Discharge Disposition: OTHER INSTITUTION NOT DEFINED
[2022-02-16] MEDS ORDERED: ASPIRIN 81 MG PO SCH (10:45)
[2022-02-16 12:18] VITALS: BP 163/92; PULSE 81; RESP 22; TEMP 97
--- NOTE | 2022-02-16 12:40 | P.CRDCN ---
History of Present Illness History of present illness: HISTORY OF PRESENT ILLNESS: This is a 51 year old male with a past medical history significant for coronary artery disease with previous stent placements (details unknown), hypertension, and diabetes. 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 We have been asked to see the patient in consultation for abnormal troponins. Patient examined at the bedside. Patient presented to the hospital with symptoms of an upper respiratory infection. Patient was found to be febrile as well overnight. He is receiving antibiotics per internal medicine. He reports some mild chest pain with palpation of his left upper chest. He denies SOB. Blood pressure elevated this morning. * EKG reveals sinus mechanism. T wave inversion in lead I and V6. * Chest xray normal chest. * Laboratory data: WBC 12.1. Hemoglobin 13.1. Platelet count 249. Sodium 139. Potassium 3.6. BUN 17. Creatinine 1.12. Troponin 0.075. 0.086. 0.090. * Current home cardiac medications include metoprolol succinate 100 mg daily, lisinopril 20 mg daily, and Lopid 600 mg BID REVIEW OF SYSTEMS: At the time of my exam: CONSTITUTIONAL: Denies fever or chills. HEENT: Denies blurred vision, vision changes, or eye pain. Denies hemoptysis CARDIOVASCULAR: Denies chest pain. Denies orthopnea. Denies PND. Denies palpitations RESPIRATORY: Denies shortness of breath. GASTROINTESTINAL: Denies abdominal pain. Denies nausea or vomiting. HEMATOLOGIC: Denies bleeding disorders. GENITOURINARY: Denies any blood in urine. SKIN: Denies pruitis. Denies rash. PHYSICAL EXAM: VITAL SIGNS: Reviewed. GENERAL: Well-developed in no acute distress. HEENT: Head is normocephalic. Pupils are equal, round. Sclerae anicteric. Mucous membranes of the mouth are moist. Neck supple. No JVD or thyromegaly LUNGS: Respirations even and unlabored. Lungs essentially clear to auscultation bilaterally. HEART: Regular rate and rhythm. S1 and S2 heard. ABDOMEN: Soft. Nondistended. Nontender. EXTREMITIES: Normal range of motion. No clubbing or cyanosis. Peripheral puls es intact. No lower extremity edema NEUROLOGIC: Awake and alert. Oriented x 3. ASSESSMENT: Upper respiratory infection, possible sinusitis Fever Leukocytosis Abnormal troponins, flat, secondary to infectious process Coronary artery disease with previous stent placement (details unknown, patient reports having this placed at [facility]) Chest pain, atypical, ACS ruled out PLAN: Obtain 2D echo to assess cardiac structure and function Begin aspirin 81mg daily Add Lipitor 20mg daily Monitor blood pressure Obtain report from patients previous cardiac cath Discontinue IV heparin Further recommendations pending patient course Nurse practitioner note has been reviewed by physician. Signing provider agrees with the documented findings, assessment, and plan of care. Past Medical History Past Medical History: Diabetes Mellitus, Hypertension, Myocardial Infarction ([place]) Additional Past Medical History / Comment(s): history of 9 heart attacks- 1 stent placed, neuropathy, gout, Last Myocardial Infarction Date:: unknown History of Any Multi-Drug Resistant Organisms: None Reported Past Surgical History: Cholecystectomy Additional Past Surgical History / Comment(s): back surgery, Past Psychological History: Unable to Obtain Smoking Status: Never smoker Past Alcohol Use History: None Reported Past Drug Use History: Cocaine - Past Family History Mother Family Medical History: Cancer Additional Family Medical History / Comment(s): Mother of lung cancer. She was an exsmoker. Father History Unknown: Yes Medications and Allergies Home Medications Medication Instructions Recorded Confirmed Type Acetaminophen [Tylenol Arthritis] 650 mg PO Q4H PRN 02/09/22 02/15/22 History Chlorpheniramine Maleate 4 mg PO Q4H PRN 02/09/22 02/15/22 History [Chlor-Trimeton] Ibuprofen [Motrin Ib] 600 mg PO Q6H PRN 02/09/22 02/15/22 History Mag Hydrox/Aluminum Hyd/Simeth 30 ml PO Q4H PRN 02/09/22 02/15/22 History [Mylanta Maximum Strength Liq] Metoprolol Succinate [Toprol XL] 100 mg PO DAILY 02/09/22 02/15/22 History Mirtazapine [Remeron] 15 - 30 mg PO HS 02/09/22 02/15/22 History Multivitamins, Thera [Multivitamin 1 tab PO DAILY 02/09/22 02/15/22 History (formulary)] Thiamine [Vitamin B-1] 100 mg PO DAILY 02/09/22 02/15/22 History gemfibroziL [Lopid] 600 mg PO BID 02/09/22 02/15/22 History glyBURIDE [Diabeta] 5 mg PO BID 02/09/22 02/15/22 History Ibuprofen [Motrin] 800 mg PO TID 02/15/22 02/15/22 History cloNIDine HCL [Catapres] 0.1 - 0.3 mg PO Q4H PRN 02/15/22 02/15/22 History cefUROXime axetiL [Ceftin] 500 mg PO BID 4 Days #8 tab 02/16/22 Rx lisinopriL 20 mg PO DAILY #0 02/16/22 02/15/22 Rx Allergies Allergy/AdvReac Type Severity Reaction Status Date / Time No Known Allergies Allergy Verified 02/15/22 21:50 Physical Exam Vitals: Vital Signs Temp Pulse Pulse Resp BP BP Pulse Ox 02/16/22 08:00 97.2 F L 105 H 18 117/112 96 02/16/22 06:25 98.7 F 92 18 158/101 96 02/15/22 23:54 98.2 F 105 H 18 138/83 98 02/15/22 20:59 100.5 F H 105 H 20 163/109 98 Intake and Output 02/15/22 02/16/22 02/16/22 22:59 06:59 14:59 Intake Total 94 Balance 94 Intake: Intake, IV Titration 94 Amount Heparin Sod,Pork in 0.45% 94 NaCl 25,000 unit In 0.45 % NaCl 1 250ml.bag @ 7. 252 UNITS/KG/HR 10 mls/hr IV .Q24H [facility] Rx#: [id number] Other: Weight 137.892 kg Results 02/16/22 02:26 02/16/22 02:26 Cardiac Enzymes 02/15/22 02/15/22 02/15/22 Range/Units 21:29 21:29 23:14 AST 35 (17-59) U/L Troponin I 0.075 H* 0.086 H* (0.000-0.034) ng/mL 02/16/22 Range/Units 02:26 AST (17-59) U/L Troponin I 0.090 H* (0.000-0.034) ng/mL Coagulation 02/15/22 02/16/22 02/16/22 Range/Units 23:14 02:26 07:18 PT 11.4 (9.0-12.0) sec APTT 24.3 30.2 H (22.0-30.0) sec CBC 02/15/22 02/16/22 Range/Units 21:29 02:26 WBC 12.3 H 12.1 H (3.8-10.6) k/uL RBC 4.44 4.45 (4.30-5.90) m/uL Hgb 13.6 13.1 (13.0-17.5) gm/dL Hct 40.9 40.4 (39.0-53.0) % Plt Count 272 249 (150-450) k/uL Comprehensive Metabolic Panel 02/15/22 02/16/22 Range/Units 21:29 02:26 Sodium 139 139 (137-145) mmol/L Potassium 3.9 3.6 (3.5-5.1) mmol/L Chloride 107 106 (98-107) mmol/L Carbon Dioxide 25 28 (22-30) mmol/L BUN 17 17 (9-20) mg/dL Creatinine 1.06 1.12 (0.66-1.25) mg/dL Glucose 79 116 H (74-99) mg/dL Calcium 8.6 8.8 (8.4-10.2) mg/dL AST 35 (17-59) U/L ALT 22 (4-49) U/L Alkaline Phosphatase 73 (38-126) U/L Total Protein 6.3 (6.3-8.2) g/dL Albumin 3.6 (3.5-5.0) g/dL Current Medications Generic Name Dose Route Start Last Admin Trade Name Freq PRN Reason Stop Dose Admin Acetaminophen 650 mg 02/16/22 06:13 02/16/22 06:46 Acetaminophen Tab 325 Mg Tab PO 650 mg Q6HR PRN Administration Fever and/ or Pain Diphenhydramine HCl 25 mg 02/15/22 22:31 Diphenhydramine 25 Mg Cap PO Q4H PRN Allergy Symptoms Fenofibrate 160 mg 02/16/22 09:00 02/16/22 08:09 Fenofibrate 160 Mg Tab PO 160 mg DAILY [facility]ON[facility] Administration Glipizide 10 mg 02/16/22 07:30 02/16/22 08:09 Glipizide 10 Mg Tab PO 10 mg AC-BID SONIA Administration Heparin Sodium (Porcine) 0 unit 02/15/22 22:27 02/16/22 09:03 Heparin Sodium 1,000 Un/Ml (10ml Vl) IV 4,000 unit PER PROTOCOL PRN Administration Low PTT Protocol Heparin Sodium/Sodium Chloride 250 mls @ 10 mls/hr 02/15/22 22:30 02/16/22 09:02 25,000 unit/ Sodium Chloride IV 10.252 units/kg/hr .Q24H [facility] 14.137 mls/hr Titration Protocol 7.252 UNITS/KG/HR Lisinopril 40 mg 02/16/22 09:00 02/16/22 08:09 Lisinopril 20 Mg Tab PO 40 mg DAILY SONIA Administration Loratadine/Pseudoephedrine Sulfate 1 each 02/15/22 22:27 Loratadine-Pseudoeph 5-120 Mg 1 Each Tab.Er.12h PO Q12HR PRN Allergy Symptoms Metoprolol Succinate 100 mg 02/16/22 09:00 02/16/22 08:09 Metoprolol Succinate (Er) 100 Mg Tab.Er.24h PO 100 mg DAILY SONIA Administration Naloxone HCl 0.2 mg 02/15/22 22:29 Naloxone 0.4 Mg/Ml 1 Ml Vial IV Q2M PRN Opioid Reversal Intake and Output 02/15/22 02/16/22 02/16/22 22:59 06:59 14:59 Intake Total 94 Balance 94 Intake: Intake, IV Titration 94 Amount Heparin Sod,Pork in 0.45% 94 NaCl 25,000 unit In 0.45 % NaCl 1 250ml.bag @ 7. 252 UNITS/KG/HR 10 mls/hr IV .Q24H [facility] Rx#: [id number] Other: Weight 137.892 kg 02/16/22 02:26 02/16/22 02:26
[2022-02-16] MEDS ORDERED: ATORVASTATIN 40 MG TAB PO SCH (21:00)
[2022-02-16] MEDS ORDERED: ATORVASTATIN 20 MG TAB PO SCH (21:00)
--- NOTE | 2022-02-17 07:55 | CA ---
Transthoracic Echo Report Name: Seamus Vang Age: 51 Gender: M : 1970 Exam Date: 02/16/2022 10:32 Exam Location: [facility] Ht (in): 71 Wt (lb): 304 Ordering Physician: Aniket Brewer MD Attending/Referring Phys: Progressive Care Unit Registered Nurse Dyana Sandoval RDCS Procedure CPT: Indications: nstemi Cardiac Hx: Technical Quality: Contrast 1: Total Dose (mL): Contrast 2: Total Dose (mL): MEASUREMENTS (Male / Female) Normal Values 2D ECHO LV Diastolic Diameter PLAX 5.3 cm 4.2 - 5.9 / 3.9 - 5.3 cm LV Systolic Diameter PLAX 4.2 cm IVS Diastolic Thickness 2.1 cm 0.6 - 1.0 / 0.6 - 0.9 cm LVPW Diastolic Thickness 1.8 cm 0.6 - 1.0 / 0.6 - 0.9 cm LV Relative Wall Thickness 0.7 RV Internal Dim ED PLAX 4.0 cm LA Systolic Diameter LX 4.6 cm 3.0 - 4.0 / 2.7 - 3.8 cm LA Volume 133.5 cm??? 18 - 58 / 22 - 52 cm??? M-MODE Aortic Root Diameter MM 3.4 cm MV E Point Septal Separation 1.6 cm AV Cusp Separation MM 2.3 cm DOPPLER AV Peak Velocity 142.1 cm/s AV Peak Gradient 8.1 mmHg MV Area PHT 5.9 cm??? Mitral E Point Velocity 109.0 cm/s Mitral A Point Velocity 43.4 cm/s Mitral E to A Ratio 2.5 MV Deceleration Time 129.3 ms MV E' Velocity 4.8 cm/s Mitral E to MV E' Ratio 22.7 FINDINGS Left Ventricle Left ventricular ejection fraction is estimated at 40-45 %. Left ventricular cavity size normal. Severe concentric left ventricular hypertrophy. Right Ventricle Mild right ventricular dilatation. Unable to estimate the right ventricular systolic pressure. Right Atrium Normal right atrial size. Left Atrium Mildly increased left atrial diameter. Severely increased left atrial volume. Moderately increased left atrial area. Mitral Valve Mild mitral regurgitation. Mitral annular calcification. Aortic Valve Trileaflet aortic valve. No aortic valve stenosis or regurgitation. Tricuspid Valve Structurally normal tricuspid valve. Pulmonic Valve Trace pulmonic regurgitation. Pericardium Normal pericardium. No pericardial effusion. Aorta Normal size aortic root and proximal ascending aorta. CONCLUSIONS Severe concentric LVH measuring 2.1 cm LV EF 40-45% Mild RV dilation Mild mitral regurgitation Moderately dilated left atrium No pericardial effusion Previewed by: Dr. Richy Ramires DO (Electronically Signed) Final Date: 17 February 2022 07:54
== END 2022-02-16 15:00 ==
LOC: EC 20:56 → 3SCARD 22:29 → INTOOBSV 22:29 → 3SCARD 02-16 06:31 → UNDODISIN 02-16 15:00
PROVIDERS: ADMIT Hospitalist; ATTEND Hospitalist
DX: A41.9 Sepsis, unspecified organism (principal); J01.90 Acute sinusitis, unspecified; R07.89 Other chest pain; R79.89 Other specified abnormal findings of blood chemistry; I11.9 Hypertensive heart disease without heart failure; I25.10 Atherosclerotic heart disease of native coronary artery without angina pectoris; I34.0 Nonrheumatic mitral (valve) insufficiency; E11.40 Type 2 diabetes mellitus with diabetic neuropathy, unspecified; M10.9 Gout, unspecified; I25.2 Old myocardial infarction; Z20.822 Contact with and (suspected) exposure to COVID-19; Z28.310 Unvaccinated for COVID-19; Z79.1 Long term (current) use of non-steroidal anti-inflammatories (NSAID); Z79.84 Long term (current) use of oral hypoglycemic drugs; Z79.899 Other long term (current) drug therapy; Z95.5 Presence of coronary angioplasty implant and graft; Z90.49 Acquired absence of other specified parts of digestive tract; Z98.890 Other specified postprocedural states; Z80.1 Family history of malignant neoplasm of trachea, bronchus and lung; Z81.2 Family history of tobacco abuse and dependence
CPT/HCPCS: 96376 ×2; 96366; 96361; 96365; 96374; 96375; 99291; 36415; 93005; 93306; 80053; 80048; 83735; 84484 ×2; 85025 ×2; 85610; 85730 ×2; 87502; 87635; 71046; G0378 ×2; J1200; J0780; J0696; J1644 ×3; J1885